=== PATIENT | male | born 1985 | race Caucasian/White ===

== ENCOUNTER 2018-05-02 18:41 | Emergency (ER) | payer SELFPAY ==
[~2018-05-02] VITALS: Ht 177.8 cm; Wt 70.3 kg
[~2018-05-02 18:41] MED LIST: AMOX500C2 PO; CIPR500T4 PO; HYDR-34 PO; HYDR-757 PO
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
--- OUTSIDE RECORDS SUMMARY | 2018-05-02 18:49 | XMS REPORT | Clinical Summary ---
Author Author [facility] Organization [facility] Address Unknown Phone Unavailable Care Team Providers Care Security Alarm Technician Name Role Phone PCP Unavailable Source Comments Some departments are not documenting in the electronic medical record. If you do not see the information that you expected, contact Release of Information in the Health Information Management department at [phone] for further assistance in locating additional records.[facility] Allergies Not on File Current Medications Not on file Active Problems Not on file Social History Tobacco Use Types Packs/Day Years Used Date Never Assessed Sex Assigned at Date Recorded Not on file Last Filed Vital Signs Not on file Plan of Treatment Health Maintenance Due Date Last Done Comments PHYSICAL (COMPREHENSIVE) 1994 EXAM PERTUSSIS VACCINE 1998 HIV SCREENING 2002 TETANUS VACCINE 2004 INFLUENZA VACCINE 07/12/2018 Results Not on filefrom Last 3 Months
[2018-05-02] MEDS ORDERED: TETANUS,DIPTH,PERTUSS P/F (BOOSTRIX) 0.5 ML VIAL IM ONE (19:45)
--- NOTE | 2018-05-02 20:01 | Diagnostic Imaging Report ---
INDICATION: Trauma COMPARISON: 05/05/16 FINDINGS: Single view of the chest demonstrates clear lungs bilaterally. The heart is normal. There is no pneumothorax. Osseous structures are age-appropriate. IMPRESSION: Negative chest Dictated by: Dictated on workstation # [id number]
--- NOTE | 2018-05-02 20:02 | Diagnostic Imaging Report ---
INDICATION: Left shoulder injury, pain, trauma. COMPARISON: None. EXAMINATION: Three views of the left shoulder were obtained. FINDINGS: No fracture or dislocation. Articular surfaces are normal. No foreign body. IMPRESSION: Negative left shoulder. Dictated by: Dictated on workstation # [id number]
--- NOTE | 2018-05-02 20:23 | Diagnostic Imaging Report ---
PROCEDURE: CT head, face, and cervical spine without contrast. TECHNIQUE: Multiple contiguous axial images were obtained through the head, neck, and facial bones without the use of intravenous contrast. Sagittal and coronal reformations through the cervical spine and facial bones were also performed. INDICATION: Head and neck pain, trauma. COMPARISON: None. CT HEAD: The ventricles are normal in size, shape and position. There is no midline shift or mass effect. There is no hemorrhage or evidence of acute ischemia. The bony calvarium is normal. Visualized paranasal sinuses and mastoids are clear. IMPRESSION: No acute intracranial abnormality. CT CERVICAL SPINE: Alignment is normal. There is no subluxation or fracture. No degeneration is seen. Please note the cervical thoracic junction is not well evaluated on this series. There is no paraspinous mass. IMPRESSION: No traumatic malalignment or fracture. CT FACE: Acute displaced nasal bone fracture is seen. There is slight deviation of the nasal septum. There is a chronic fracture of the left zygomatic arch. The mandible and temporal mandibular joints appear intact. Paranasal sinuses are clear. There is also a chronic healed fracture of the left maxillary sinus wall. IMPRESSION: Minimally displaced bilateral nasal bone fracture with slight deviation of the nasal septum. No additional abnormality is seen. Dictated by: Dictated on workstation # [id number]
[2018-05-02] MEDS ORDERED: RX-TRAMADOL 50 MG (ULTRAM) TAB PPK#4 PO STA (20:53)
[2018-05-02] MEDS ORDERED: RX-NAPROXEN (NAPROSYN) 250 MG TAB PPK#4 PO STA (20:53)
[2018-05-02] MEDS ORDERED: NAPR-915 PO (20:59)
[2018-05-02] MEDS ORDERED: AMOX-358 PO (20:59)
[2018-05-02] MEDS ORDERED: TRAM-42 PO (20:59)
[2018-05-02] MEDS ORDERED: AUGMENTIN 875 MG TAB (AMOXICILLIN/CLAVULANATE) PO SCH (21:00)
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
[2018-05-02 21:15] VITALS: BP 152/100
== END 2018-05-02 21:15 | disposition home or self-care (01) ==
LOC: EDUNIT# 18:41 → ER 18:43
DX: S02.2XXA Fracture of nasal bones, initial encounter for closed fracture (principal); S01.21XA Laceration without foreign body of nose, initial encounter; S46.812A Strain of other muscles, fascia and tendons at shoulder and upper arm level, left arm, initial encounter; S16.1XXA Strain of muscle, fascia and tendon at neck level, initial encounter; S05.11XA Contusion of eyeball and orbital tissues, right eye, initial encounter; Z90.89 Acquired absence of other organs; Z23 Encounter for immunization; Y09 Assault by unspecified means
CPT/HCPCS: 70450; 70486; 71045; 72125; 73030

== ENCOUNTER 2018-06-18 19:13 | Emergency (ER) | payer SELFPAY ==
[~2018-06-18 19:13] MED LIST changes: +AMOX-358 PO; +HYDR-4226 PO; -HYDR-757 PO; +NAPR-915 PO; +TRAM-42 PO
== END 2018-06-18 20:18 | disposition left against medical advice (07) ==
LOC: EDUNIT# 19:13 → ER 19:14
DX: R44.3 Hallucinations, unspecified (principal)

== ENCOUNTER 2018-09-30 17:27 | Emergency (ER) | payer SELFPAY ==
[~2018-09-30] VITALS: Ht 182.9 cm; Wt 77.1 kg
--- OUTSIDE RECORDS SUMMARY | 2018-09-30 17:31 | XMS REPORT | Clinical Summary ---
Author Author [facility] Organization [facility] Address Unknown Phone Unavailable Care Team Providers Care Presser First Name Role Phone PCP Unavailable Source Comments Some departments are not documenting in the electronic medical record. If you do not see the information that you expected, contact Release of Information in the Health Information Management department at [phone] for further assistance in locating additional records.[facility] Allergies Not on File Medications Not on file Active Problems Not on file Social History Date Tobacco Use Types Packs/Day Years Used Never Assessed Sex Assigned at Date Recorded Not on file Industry Job Start Date Occupation Not on file Not on file Not on file Travel End Travel History Travel Start No recent travel history available. Last Filed Vital Signs Not on file Plan of Treatment Health Maintenance Due Date Last Done Comments PHYSICAL (COMPREHENSIVE) 1994 EXAM HIV SCREENING 2002 DTAP/TDAP VACCINES ( - 2005 Tdap) INFLUENZA VACCINE 05/12/2018 Results Not on filefrom Last 3 Months Advance Directives Patient has advance care planning documents on file. For more information, please contact: [facility] [address] [place] [address]
--- OUTSIDE RECORDS SUMMARY | 2018-09-30 17:31 | XMS REPORT ---
Author Author Yelena Tijerina Organization [facility] Address [address] [place] [id number] Care Team Providers Care Typesetting Machine Operator/Tender Name Role Phone Brit Tijerinatany Unavailable PROBLEMS Type Condition ICD9-CM Code [id number] Code Onset Dates Condition Status SNOMED Code Problem Primary insomnia F51.01 Active [id number] ALLERGIES No Information ENCOUNTERS Encounter Location Date [facility] [address] [place] [address] [phone] Jul, [facility] [address] [place] [phone] Jul, [facility] [address] [place] [address] [phone] Jul, Primary insomnia F51.01 and Current smoker F17.200 IMMUNIZATIONS No Known Immunizations SOCIAL HISTORY Never Assessed REASON FOR VISIT med clarification PLAN OF CARE VITAL SIGNS MEDICATIONS Unknown Medications RESULTS No Results PROCEDURES No Known procedures INSTRUCTIONS MEDICATIONS ADMINISTERED No Known Medications
--- OUTSIDE RECORDS SUMMARY | 2018-09-30 17:31 | XMS REPORT ---
Author Author Breezy Yelena Organization [facility] Address [address] [place] [id number] Care Team Providers Care Shirring Machine Operator Automatic Name Role Phone Yelena Tijerina Unavailable PROBLEMS Type Condition ICD9-CM Code [id number] Code Onset Dates Condition Status SNOMED Code Problem Primary insomnia F51.01 Active [id number] ALLERGIES No Known Allergies ENCOUNTERS Encounter Location Date Diagnosis [facility] [address] [place] [address] [phone] Jul, Primary insomnia F51.01 and Current smoker F17.200 IMMUNIZATIONS No Known Immunizations SOCIAL HISTORY Never Assessed REASON FOR VISIT [facility], cannot sleep PLAN OF CARE VITAL SIGNS Temperature 98 degrees Fahrenheit 2018-07-22 Heart Rate 86 /min 2018-07-22 Respiratory Rate 20 /min 2018-07-22 Oximetry 99 % 2018-07-22 Weight 153.4 lbs 2018-07-22 Height 70.47 in 2018-07-22 BMI 21.72 kg/m2 2018-07-22 Blood pressure systolic 135 mm Hg 2018-07-22 Blood pressure diastolic 85 mm Hg 2018-07-22 MEDICATIONS Medication Instructions Dosage Frequency Start Date End Date Duration Status Trazodone HCl 50 MG Orally Once a day 1 tablet at bedtime as needed 24h Jul, 30 day(s) Active RESULTS No Results PROCEDURES Procedure Date Ordered Result Body Site BEHAV CHNG SMOKING 3-10 MIN Jul 22, 2018 INSTRUCTIONS MEDICATIONS ADMINISTERED No Known Medications
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
[2018-09-30] MEDS: LIDOCAINE/EPI 2% 1:100,00 (XYLOCAINE) 20 ML VIAL ONE (17:46)
--- NOTE | 2018-09-30 18:18 | ED Integumentary General ---
General Chief Complaint: Skin/Wound Problems Stated Complaint: GROWTH ON CHEST, SOB Nursing Triage Note: PT CO OF WOUND ON CHEST APPEARS CYSTIC, ROUND SOFT, NO SIGNS OF INFECTION AT THIS X. PT STATES MAKING HIM SOA A LITTLE WHILE AGO BUT DENIES AT THIS X. PT STATES HAS HAD CYCSTIC AREA FOR YEARS Source: patient Exam Limitations: no limitations History of Present Illness Date Seen by Provider: Sep 30, 2018 Time Seen by Provider: 18:12 Initial Comments To ER with a lesion to the right upper chest wall. This has been present for 3 years but only started becoming painful about 2-3 days ago. No fevers or chills. He did have some shortness of breath today while at work but those symptoms have passed. Timing/Duration: just prior to arrival Severity: moderate Location: torso Allergies and Home Medications Allergies Coded Allergies: No Known Drug Allergies (Unverified , 05/05/16) Home Medications No Active Prescriptions or Reported Meds Patient Home Medication List Home Medication List Reviewed: Yes Review of Systems Review of Systems Constitutional: see HPI; No chills, No fever EENTM: see HPI Respiratory: see HPI, short of breath (transiently short of breath at work but back to normal now) Cardiovascular: no symptoms reported Genitourinary: no symptoms reported Musculoskeletal: no symptoms reported Skin: no symptoms reported Past Stzlvqh-Rovqdw-Wvagyv Hx Patient Social History Alcohol Use: Denies Use Recreational Drug Use: Yes Drug of Choice: THC Smoking Status: Current Everyday Smoker Type Used: Cigarettes Recent Foreign Travel: No Contact w/Someone Who Travel: No Recent Infectious Disease Expo: No Recent Hopitalizations: No Immunizations Up To Date Tetanus Booster (TDap): Less than 5yrs Seasonal Allergies Seasonal Allergies: No Past Medical History Surgeries: Yes Adenoidectomy, Tonsillectomy Respiratory: No Cardiac: No Neurological: Yes (MENINGITIS AGE 16) Meningitis Reproductive Disorders: No Gastrointestinal: No Musculoskeletal: No Endocrine: No Cancer: No Psychosocial: No Integumentary: No Blood Disorders: No Adverse Reaction/Blood Tranf: No Family Medical History No Pertinent Family Hx Physical Exam Vital Signs Vital Signs - First Documented 09/30/18 17:30 Temp 97.3 Pulse 100 Resp 18 B/P (MAP) 162/86 (111) Pulse Ox 97 Capillary Refill : Less Than 3 Seconds General Appearance: WD/WN, no apparent distress HEENT: PERRL/EOMI, normal ENT inspection Respiratory: no respiratory distress, no accessory muscle use Gastrointestinal: normal bowel sounds, non tender Neurologic/Psychiatric: alert, normal mood/affect, oriented x 3 Skin: normal color, warm/dry Skin Problem Character: other (slightly erythematous mobile 2.5 cm nodule to the right anterior upper chest with a central punctum.) Procedures/Interventions I&D : Blade Size: 10 I & D Procedure: betadine prep Progress This area was cleansed with Betadine. This was then allowed to dry. It was then infiltrated with 2 mL of 2% lidocaine with epinephrine 1-100,000. Upon injecting this, the central punctum began to leak clear fluid present to be lidocaine I was injecting. A 10 blade scalpel was then used to make a 1 cm incision over this. Unfortunately we did cut through the cyst wall during this and a very large amount of cottage cheese/mashed potato consistency whitish material was expressed. This was consistent with an inflamed sebaceous cyst. Culture of the material was collected and sent to lab. As much of the cyst wall as could be removed was removed. This incision was then loosely sutured with 2 simple interrupted sutures after the cavity was irrigated with 120 mL of Betadine/saline solution. This was left open at the inferior aspect of the incision so as to allow for drainage of any developing serous or bloody fluid. I will have him follow-up with a surgeon as I was unable to completely excise the cyst wall and he will possibly have recurrence of this. Progress/Results/Core Measures Results/Orders My Orders Orders - LUDIN LAIRD APRN Wound Culture (09/30/18 18:11) Medications Given in ED Current Medications Medications Dose Ordered Sig/Nadir Route Start Time Stop Time Status Last Admin Dose Admin Lidocaine/ Epinephrine 20 ml STK-MED ONCE .ROUTE 09/30/18 17:36 09/30/18 17:39 DC 09/30/18 17:46 5 ML Vital Signs/I&O 09/30/18 17:30 Temp 97.3 Pulse 100 Resp 18 B/P (MAP) 162/86 (111) Pulse Ox 97 Blood Pressure Mean: 111 Departure Impression Primary Impression: Inflamed sebaceous cyst Disposition: 01 HOME, SELF-CARE Condition: Improved Departure-Patient Inst. Decision time for Depature: 18:18 Referrals: USGEY GUADALUPE (PCP) Primary Care Physician MIREYA GOOD BRETT D DO JENKINS, XAVIER M MD KIDO, TAKAAKI MD Patient Instructions: SEBACEOUS CYST, SEBACEOUS CYST-I&D Add. Discharge Instructions: 1. Change the dressing over this as needed to collect any drainage. You should follow-up with a surgeon of your choosing. A list of surgeons has been provided. Take the antibiotics and pain medication as directed. Return to the emergency room in 7-10 days to have the stitches removed. You may shower let water run over this in the meantime. All discharge instructions reviewed with patient and/or family. Voiced understanding. Scripts Hydrocodone/Acetaminophen (Nabb 5-325 Tablet) 1 Each Tablet 1 EACH PO Q6H PRN for PAIN-MODERATE MDD 10, #10 TAB Prov: LUDIN LAIRD APRN 09/30/18 Cephalexin (Keflex) 500 Mg Capsule 500 MG PO TID, #21 CAP Prov: LUDIN LAIRD APRN 09/30/18 Work/School Note: Work Release Form Date Seen in the Emergency Department: Sep 30, 2018 Return to Work: Oct 02, 2018 LUDIN LAIRD APRN Sep 30, 2018 18:18
[2018-09-30] MEDS ORDERED: CEPH-507 PO (18:20)
[2018-09-30] MEDS ORDERED: HYDR-4226 PO (18:20)
[2018-09-30 18:25] VITALS: BP 162/86
== END 2018-09-30 18:25 | disposition home or self-care (01) ==
LOC: ER 17:27 → EDUNIT# 17:27 → ER 18:25
DX: L72.3 Sebaceous cyst (principal); F17.210 Nicotine dependence, cigarettes, uncomplicated; Z90.89 Acquired absence of other organs
CPT/HCPCS: 10060; 87070; 87205

== ENCOUNTER 2018-10-07 09:18 | Emergency (ER) | payer SELFPAY ==
[~2018-10-07] VITALS: Ht 182.9 cm; Wt 72.6 kg
[~2018-10-07 09:18] MED LIST changes: +CEPH-507 PO
[2018-10-07 10:15] VITALS: BP 133/87
== END 2018-10-07 10:15 | disposition home or self-care (01) ==
LOC: EDUNIT# 09:18 → ER 09:19
DX: S21.119D Laceration without foreign body of unspecified front wall of thorax without penetration into thoracic cavity, subsequent encounter (principal); X58.XXXD Exposure to other specified factors, subsequent encounter

== ENCOUNTER 2023-05-24 13:22 | Emergency (ER) | payer SELFPAY ==
[~2023-05-24] VITALS: Ht 177.8 cm; Wt 68.0 kg
[~2023-05-24 13:22] MED LIST changes: -CIPR500T4 PO; +CIPR500T5 PO
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
[2023-05-24 14:03] VITALS: BP 144/81
== END 2023-05-24 14:03 | disposition home or self-care (01) ==
LOC: EDUNIT# 13:22 → ER 13:25
DX: S02.2XXA Fracture of nasal bones, initial encounter for closed fracture (principal); V89.2XXA Person injured in unspecified motor-vehicle accident, traffic, initial encounter; W22.09XA Striking against other stationary object, initial encounter; Y92.410 Unspecified street and highway as the place of occurrence of the external cause
CPT/HCPCS: 70486

== ENCOUNTER 2023-09-05 14:41 | Emergency (ER) | payer SELFPAY ==
[~2023-09-05] VITALS: Ht 180 cm; Wt 66.0 kg
[2023-09-05] MEDS ORDERED: SULF-221 PO (14:58)
--- NOTE | 2023-09-05 14:58 | ED Integumentary General ---
General Chief Complaint: Skin/Wound Problems Stated Complaint: INSECT BITE Nursing Triage Note: PT NOTICED AN ABSCESS IN UPPER BACK TODAY Source: patient Exam Limitations: no limitations History of Present Illness Date Seen by Provider: Sep 05, 2023 Time Seen by Provider: 14:56 Initial Comments Patient is a 38-year-old male who presents ED with a potential bug bite to the mid upper back. Noted some pain about few hours ago. Unsure if he was bitten by a spider or some type of insect. Denies of any injury. Started developing pain when he noticed the lump. Denies any fever, chills, nausea vomit, diarrhea use, cough, abdominal pain, vomiting, diarrhea. Denies any drug use besides marijuana. Denies history of MRSA. Allergies and Home Medications Allergies Coded Allergies: No Known Drug Allergies (Unverified , 05/05/16) Patient Home Medication List Home Medication List Reviewed: Yes Cephalexin (Keflex) 500 Mg Capsule, 500 MG PO TID Prescribed by: LUDIN LAIRD on 09/30/181819 Hydrocodone/Acetaminophen (Hydrocodone/Acetaminophen 5 MG/325 MG TAB) 1 Each Tablet, 1 EACH PO Q6H PRN for PAIN-MODERATE Prescribed by: LUDIN LAIRD on 09/30/18 182 Sulfamethoxazole/Trimethoprim (Bactrim Ds Tablet) 800 Mg-160 Mg Tablet, 1 EACH PO BID Prescribed by: VICTOR M BARNETT on 09/05/23 1458 Review of Systems Review of Systems Constitutional: No chills, No diaphoresis, No fever, No malaise EENTM: No ear pain, No blurred vision, No double vision Respiratory: No cough, No dyspnea on exertion Cardiovascular: No chest pain Gastrointestinal: No abdominal pain, No diarrhea, No nausea, No vomiting Genitourinary: No decreased output, No discharge Musculoskeletal: back pain; No joint pain Skin: change in color All Other Systems Reviewed Negative Unless Noted: Yes Past Uoagqcz-Qsebqg-Vjpkdn Hx Patient Social History Tobacco Use?: Yes Tobacco type used: Cigarettes Smoking Status: Current Everyday Smoker Substance use?: Yes Substance type: Marijuana Alcohol Use?: No Immunizations Up To Date Tetanus Booster (TDap): Less than 5yrs First/Initial COVID19 Vaccinat: NO Seasonal Allergies Seasonal Allergies: No Past Medical History Surgery/Hospitalization HX: DENIES MED HX Surgeries: Yes Adenoidectomy, Tonsillectomy Respiratory: No Cardiac: No Neurological: Yes (MENINGITIS AGE 16) Meningitis Reproductive Disorders: No Gastrointestinal: No Musculoskeletal: No Endocrine: No Cancer: No Psychosocial: No Integumentary: No Blood Disorders: No Adverse Reaction/Blood Tranf: No Family Medical History No Pertinent Family Hx Physical Exam Vital Signs Vital Signs - First Documented 09/05/23 14:46 Temp 36.6 Pulse 87 Resp 18 B/P (MAP) 116/78 (91) Pulse Ox 97 O2 Delivery Room Air Capillary Refill : Less Than 3 Seconds General Appearance: WD/WN, no apparent distress HEENT: PERRL/EOMI, normal ENT inspection, TMs normal Neck: non-tender, full range of motion, supple Cardiovascular: regular rate, rhythm, no edema, no gallop, no JVD Respiratory: chest non-tender, lungs clear, normal breath sounds, no respiratory distress, no accessory muscle use Gastrointestinal: normal bowel sounds, non tender, soft Back: normal inspection, no CVA tenderness Extremities: normal range of motion, non-tender Skin: other (2 x 3 cm fluctuant mass to thoracic midline. Localized redness. Tender to palpate. No active drainage.) Procedures/Interventions I&D : Blade Size: 11 I & D Procedure: betadine prep, sterile drapes applied, sterile dressing applied Packing/Drain: Idoform 1/4 Progress 2 x 3 cm fluctuant mass to the thoracic midline. Anesthetized with 1% lidocaine 5 mL local. Moderate amount of purulent drainage. Quarter inch idoform packing placed. tolerated procedure well. Progress/Results/Core Measures Results/Orders Vital Signs/I&O 09/05/23 14:46 Temp 36.6 Pulse 87 Resp 18 B/P (MAP) 116/78 (91) Pulse Ox 97 O2 Delivery Room Air Blood Pressure Mean: 91 Departure Communication (PCP) Patient presents to ED for concern for an abscess to his thoracic midline. Noted pain today with redness and swelling. No specific injury. Potential bug bite versus sebaceous cyst. Anesthetized with 1% lidocaine. Moderate amount of purulent drainage. Procedure documented note. Concern that this may have been an infected sebaceous cyst. Large incision was made with moderate drainage. Quarter-inch iodoform packing placed. Remove in 2 days. Will discharge with Bactrim. Denies history of MRSA. Topical Neosporin. Discussed wound care. If increased redness or swelling to return back to ED. Recommend removing the packing in 2 days by your primary care physician or may return back to ED. Patient agrees with plan of action. Patient does not appear toxic or septic. Denies of any IV drug use. Impression Primary Impression: Abscess Disposition: 01 HOME, SELF-CARE Condition: Stable Departure-Patient Inst. Decision time for Depature: 14:58 Referrals: SUGEY GUADALUPE (PCP) Primary Care Physician EDDY HYATT DO Patient Instructions: Skin Abscess Add. Discharge Instructions: Remove packing in 2 days. Increased redness or swelling or pain to return back to ED. Anti-inflammatory such as ibuprofen for pain. Take antibiotics as prescribed. All discharge instructions reviewed with patient and/or family. Voiced u nderstanding. Scripts Sulfamethoxazole/Trimethoprim (Bactrim Ds Tablet) 800 Mg-160 Mg Tablet 1 EACH PO BID for 7 Days, #14 TAB Prov: FAZAL DONALD 09/05/23 FAZAL DONALD Sep 05, 2023 14:58
[2023-09-05 15:24] VITALS: BP 116/78
== END 2023-09-05 15:23 | disposition home or self-care (01) ==
LOC: EDUNIT# 14:41 → ER 14:43
DX: L02.212 Cutaneous abscess of back [any part, except buttock and flank] (principal); F17.210 Nicotine dependence, cigarettes, uncomplicated